=== PATIENT | male | born 1970 | race Caucasian/White ===

== ENCOUNTER 2017-07-22 09:42 | Outpatient (CLI) | payer BC ==
[2017-07-22 11:04] LABS: BILIRUBIN,URINE NEGATIVE (NEGATIVE)
[2017-07-22 11:05] LABS: BASOPHILS % (AUTO) 1.2 %; EOSINOPHILS # (AUTO) 0.1 10^3/uL (0.0-0.7); EOSINOPHILS % (AUTO) 3.7 %; HCT - HEMATOCRIT 46.5 % (42.0-52.0); HGB - HEMOGLOBIN 15.7 g/dL (14.0-18.0); LYMPHOCYTES # (AUTO) 1.4 10^3/uL (1.5-3.5); LYMPHOCYTES % (AUTO) 33.9 %; MEAN CORPUSCULAR HGB CONC 33.8 g/dL (32.0-36.0); MEAN CORPUSCULAR VOLUME 91.6 fL (80.0-94.0); MEAN PLATELET VOLUME 9.5 fL (7.4-11.4); MONOCYTES # (AUTO) 0.4 10^3/uL (0.0-1.0); MONOCYTES % (AUTO) 8.8 %; NEUTROPHILS # (AUTO) 2.1 10^3/uL (1.5-6.6); NEUTROPHILS % (AUTO) 52.4 %; RED BLOOD COUNT 5.07 10^6/uL (4.70-6.10); RED CELL DISTRIBUTION WIDTH 13.1 % (12.0-15.0); UNCORRECTED WHITE BLOOD COUNT 4.1 x10^3/uL; WHITE BLOOD COUNT 4.1 x10^3/uL (4.8-10.8)
[2017-07-22 11:46] LABS: ALBUMIN/GLOBULIN RATIO 1.9 (1.0-2.2); BUN - BLOOD UREA NITROGEN 17 mg/dL (6-20); CALCIUM 8.9 mg/dL (8.5-10.3); CARBON DIOXIDE - CO2 26 mmol/L (21-32); CHLORIDE 103 mmol/L (101-111); CHOL/HDL RATIO 2.9 (<5.0); CHOLESTEROL 168 mg/dL; CREATININE 0.9 mg/dL (0.6-1.2); GFR - MDRD 90 (>89); GLUCOSE 109 mg/dL (70-100); HDL CHOLESTEROL 57 mg/dL; LDL/HDL RATIO 1.6 (<3.6); SODIUM 138 mmol/L (135-145); TOTAL PROTEIN 6.9 g/dL (6.7-8.2); TRIGLYCERIDES 87 mg/dL; VLDL CHOLESTEROL 17 mg/dL
[2017-07-22 11:50] LABS: PSA TOTAL 0.67 ng/mL (0.000-2.000)
[2017-07-22 11:54] LABS: CORTISOL 13.8 ug/dL; HEMOGLOBIN A1C 0.62 g/dL
[2017-07-22 11:56] LABS: THYROID STIMULATING HORMONE 3.05 uIU/mL (0.34-5.60)
[2017-07-22 12:03] LABS: FERRITIN 114.3 ng/mL (23.9-336.2)
[2017-07-22 12:23] LABS: FOLLICLE STIMULATING HORMONE 3.24 mIU/mL
[2017-07-22 12:24] LABS: LUTEINIZING HORMONE 1.51 mIU/mL
[2017-07-25 11:22] LABS: TEST RESULT REPORT
[2017-07-25 21:25] LABS: DHEA SULFATE 176 mcg/dL (70-495)
[2017-07-26 15:46] LABS: T3 REVERSE 19 ng/dL (8-25)
[2017-07-26 21:19] LABS: DIHYDROTESTOSTERONE 51 ng/dL (16-79)
[2017-07-27 15:21] LABS: TEST RESULT REPORT
== END 2017-07-22 09:43 | disposition home or self-care (01) ==
LOC: LAB 09:42
PROVIDERS: ATTEND Preventive Medicine Preventive Medicine/Occupational Environmental Medicine
DX: E78.9 Disorder of lipoprotein metabolism, unspecified (principal); E29.1 Testicular hypofunction; R53.83 Other fatigue; E27.8 Other specified disorders of adrenal gland; R82.6 Abnormal urine levels of substances chiefly nonmedicinal as to source; E83.50 Unspecified disorder of calcium metabolism; E88.9 Metabolic disorder, unspecified; D64.9 Anemia, unspecified; E63.9 Nutritional deficiency, unspecified; R35.0 Frequency of micturition
CPT/HCPCS: 36415; 80053; 80061; 80327; 81003; 81599; 82172; 82306; 82533; 82607; 82627; 82652; 82670; 82728; 83001; 83002; 83036; 83921; 84153; 84270; 84402; 84403; 84439; 84443; 84481; 84482; 85025; 86141

== ENCOUNTER 2021-05-28 15:47 | Outpatient (CLI) | payer BC | END 2021-05-28 15:48 | disposition home or self-care (01) | LOC: COV 15:47 | PROVIDERS: ATTEND Family Medicine | DX: R50.9 Fever, unspecified (principal); R53.83 Other fatigue; R19.7 Diarrhea, unspecified; R11.2 Nausea with vomiting, unspecified; Z20.822 Contact with and (suspected) exposure to COVID-19 ==